=== PATIENT | male | born 1955 ===

== ENCOUNTER 2016-07-03 13:58 | Emergency (ER) | payer SELFPAY ==
[~2016-07-03] VITALS: Ht 167.6 cm; Wt 75.0 kg
[2016-07-03] MEDS ORDERED: SOD CHLORIDE 0.9% 1,000 ML IV STA (14:03)
[2016-07-03] MEDS ORDERED: ONDANSETRON 4 MG INJ IV ONE (14:30)
[2016-07-03] MEDS ORDERED: DIPHTH/TET/ACEL PERTUSS (ADULT) 0.5 ML VIAL IM* ONE (14:30)
[2016-07-03] MEDS ORDERED: LIDOCAINE 1%/EPI (MDV) 20 ML INJ TOP ONE (14:30)
[2016-07-03] MEDS ORDERED: CEFAZOLIN 1 GM/50 ML (PMX) 50 ML IVPB SCH (14:30)
[2016-07-03] MEDS ORDERED: HYDROmorphONE 2 MG/ML SYG IV ONE (14:30)
[2016-07-03 14:46] VITALS: Ht 167.6 cm; Wt 75.0 kg
[2016-07-03] MEDS ORDERED: ASPI81TA3 PO (14:51)
[2016-07-03] MEDS ORDERED: ATOR80TA75 PO (14:52)
[2016-07-03] MEDS ORDERED: CLOP75TA27 PO (14:52)
[2016-07-03] MEDS ORDERED: ONDA4TAB14 PO (15:00)
[2016-07-03] MEDS ORDERED: HYDR-902 PO (15:00)
[2016-07-03] MEDS ORDERED: CEPH-443 PO (15:00)
--- NOTE | 2016-07-03 15:16 | ERD ---
ER Documentation Chief Complaint Date/Time DATE: 07/03/16 TIME: 15:10 Chief Complaint LACERATION TO RT CHEEKBONE HPI 60-year-old male who presents the emergency room with a laceration to the right cheek. The patient states that he was working with a saw and something flew up and hit him in the face. The patient sustained a significant laceration to his face. He describes moderate throbbing pain that is worse to touch and moderate bleeding. He denies head trauma or loss of consciousness, no midface pain, no difficulty breathing. Unknown tetanus status. Prior history of cardiac disease. No chest pain. Retirement Plan Counselor used. ROS All systems reviewed and are negative except as per history of present illness. Medications Home Meds Active Scripts Ondansetron (Ondansetron Odt) 4 Mg Tab.rapdis, 4 MG PO Q6H Y for NAUSEA AND/OR VOMITING, #20 TAB Prov:ROCHELLE LOYA MD 07/03/16 Hydrocodone/Acetaminophen ([place] 10-325 Tablet) 1 Each Tablet, 1 TAB PO Q6H Y for PAIN, #10 TAB Prov:ROCHELLE LOYA MD 07/03/16 Cephalexin* (Keflex*) 500 Mg Capsule, 500 MG PO QID for 7 Days, CAP Prov:ROCHELLE LOYA MD 07/03/16 Reported Medications Atorvastatin* (Atorvastatin*) Unknown Strength Tablet, PO QHS, #30 TAB 07/03/16 Clopidogrel Bisulfate (Clopidogrel) 75 Mg Tablet, 75 MG PO DAILY, #30 TAB 07/03/16 Aspirin* (Aspirin* Chew) 81 Mg Tab.chew, 81 MG PO DAILY, TAB.CHEW 07/03/16 Allergies Allergies: Coded Allergies: No Known Allergy (Unverified , 07/03/16) FmHx Family History: No diabetes Physical Exam Vitals Vital Signs Date Time Temp Pulse Resp B/P Pulse Ox O2 Delivery O2 Flow Rate FiO2 07/03/16 14:46 98.2 68 18 146/80 96 Physical Exam General: Well developed, well nourished, no acute distress Head: Laceration as described below Eyes: Pupils equally reactive, EOM intact, no evidence of entrapment or ocular injury ENT: Moist mucous membranes, laceration as described below, no dental injury, tolerating secretions, no midface tenderness, no tenderness over zygomatic arch or periorbital region on the right Neck: Supple, no lymphadenopathy Respiratory: Lungs clear bilaterally, no distress Cardiovascular: RRR, no murmurs, rubs, or gallops Abdominal: Soft, non-tender, non-distended, no peritoneal signs : Deferred MSK: No edema, no unilateral swelling, 5/5 strength Neurologic: Alert and oriented, moving all extremities, normal speech, no focal weakness, no cerebellar signs Skin: The patient sustained a significant laceration that is deep just underneath and inferior to the zygomatic arch on the right side of the face. The laceration is approximately 8 cm in length and apparent 1 cm through and through laceration to the oral mucosa on the right side is also noted. The patient has sensation intact to V1 V2 and V3 distribution of the face he has intact motor function of the face. Patient has small arterial bleeding that was controlled with direct pressure, no foreign body, base of the wound is visualized. No exposed neurovascular tissue other than single vessel. Psych: Normal mood Results 24 hrs Current Medications Medications (Trade) Dose Ordered Sig/Cee Route PRN Reason Start Time Stop Time Status Last Admin Dose Admin Sodium Chloride (NS) 1,000 ml @ 1,000 mls/hr Q1H STAT IV 07/03/16 14:03 07/03/16 15:02 DC 07/03/16 14:57 Hydromorphone HCl (Dilaudid) 0.5 mg ONCE ONCE IV 07/03/16 14:30 07/03/16 14:31 DC 07/03/16 14:57 Ondansetron HCl (Zofran Inj) 4 mg ONCE ONCE IV 07/03/16 14:30 07/03/16 14:31 DC Diphtheria/ Tetanus/Acell Pertussis (Adacel) 0.5 ml ONCE ONCE IM* 07/03/16 14:30 07/03/16 14:31 DC 07/03/16 14:59 Lidocaine/ Epinephrine 20 ml 20 ml ONCE ONCE TOP 07/03/16 14:30 07/03/16 14:31 DC 07/03/16 14:58 Cefazolin Sodium (Ancef 1 Gm/50 ml (Pmx)) 50 ml @ 100 mls/hr ONCE IVPB 07/03/16 14:30 07/03/16 14:59 DC 07/03/16 14:58 Procedures/MDM PROCEDURES: Laceration Note: The patient was verbally consented prior to procedure and understands the risks , benefits, and alternatives. The patient is agreeable to procedure and has given verbal consent. Length: 8.0 cm Irrigation: Thorough irrigation was performed with pressure is normal saline Inspection: There is no evidence of deep tissue or structural injury, no evidence of foreign bodies Anesthesia: 1% lidocaine with epinephrine approximately 6 cc Repair: Loose repair using 4. 0 Vicryl a total of 4 sutures hemostasis obtained. A clean dressing was applied. The patient tolerated the procedure well with no complications. MEDICAL DECISION MAKING: Patient sustained a significant laceration to his face this is deep. Concern for possible neurovascular injury. The patient has a small arterial hemorrhage that is controlled with direct pressure. The laceration is through and through. Using direct pressure the bleeding is controlled. The patient will be given Ancef and tetanus. The patient has no evidence of airway injury. He is tolerating secretions, bleeding is controlled. No evidence of dental injury or foreign body. He has no tenderness to the midface, low concern for fracture. No evidence of ocular injury. This seems to be a soft tissue injury of the skin and soft tissue of the face. ER COURSE: I was able to reach Dr. Boo who is covering for Dr. Cox. It appears that they may not be available till this evening. I also made phone calls to local trauma centers with no callback at this time. Dr. Cox was able to call back. He states that he can see the patient is office immediately. The patient's wound was thoroughly irrigated and cleansed he was given antibiotics and pain control medication. Loose closure was obtained and hemostasis was obtained. The patient has no evidence of airway involvement. Given that the bleeding is controlled and the patient has appropriate ENT follow-up right now the patient can be safely discharged from the emergency room and will be directed to Dr. Cox's office emergently. Dr. Cox is expecting the patient. The family was informed using an box folding machine operator and the patient will be safely discharged on antibiotics and pain medication. I kept the patient and/or family informed of laboratory and diagnostic imaging results throughout the emergency room course. DISPOSITION PLAN: The patient is discharged to Dr. Cox's office for laceration care CONSULTATION: ENT Dr. Cox has accepted to see the patient is office. Departure Diagnosis: Primary Impression: Facial laceration Encounter type: initial encounter Qualified Code: S01.81XA - Facial laceration, initial encounter Condition: Stable Patient Instructions: Laceration (Sure+Close) Referrals: JACINTA COX MD [facility] YOU HAVE RECEIVED A MEDICAL SCREENING EXAM AND THE RESULTS INDICATE THAT YOU DO NOT HAVE A CONDITION THAT REQUIRES URGENT TREATMENT IN THE EMERGENCY DEPARTMENT. FURTHER EVALUATION AND TREATMENT OF YOUR CONDITION CAN WAIT UNTIL YOU ARE SEEN IN YOUR DOCTORS OFFICE WITHIN THE NEXT 1-2 DAYS. IT IS YOUR RESPONSIBILITY TO MAKE AN APPOINTMENT FOR FOLOW-UP CARE. IF YOU HAVE A PRIMARY DOCTOR --you should call your primary doctor and schedule an appointment IF YOU DO NOT HAVE A PRIMARY DOCTOR YOU CAN CALL OUR PHYSICIAN REFERRAL HOTLINE AT IF YOU CAN NOT AFFORD TO SEE A PHYSICIAN YOU CAN CHOSE FROM THE FOLLOWING [facility] [address] [facility]. [facility] [address] [facility] [facility] [address] [facility]. [facility] [address] [facility] [facility] [address] [facility]. [facility] [address] [facility]. [facility] YOU HAVE RECEIVED A MEDICAL SCREENING EXAM AND THE RESULTS INDICATE THAT YOU DO NOT HAVE A CONDITION THAT REQUIRES URGENT TREATMENT IN THE EMERGENCY DEPARTMENT. FURTHER EVALUATION AND TREATMENT OF YOUR CONDITION CAN WAIT UNTIL YOU ARE SEEN IN YOUR DOCTORS OFFICE WITHIN THE NEXT 1-2 DAYS. IT IS YOUR RESPONSIBILITY TO MAKE AN APPOINTMENT FOR FOLOW-UP CARE. IF YOU HAVE A PRIMARY DOCTOR --you should call your primary doctor and schedule and appointment IF YOU DO NOT HAVE A PRIMARY DOCTOR YOU CAN CALL OUR PHYSICIAN REFERRAL HOTLINE AT . IF YOU CAN NOT AFFORD TO SEE A PHYSICIAN YOU CAN CHOSE FROM THE FOLLOWING [facility], [facility] INSTITUTIONS: [facility] [address] [place] [address] [facility] [address] [place] [address] [facility] [address] [place] [address] Additional Instructions: GO TO DR. COX's OFFICE NOW for REPAIR. BORM, ROCHELLE A., MD Jul 03, 2016 15:16
== END 2016-07-03 15:22 | disposition home or self-care (01) ==
LOC: E/R 13:58
DX: S01.419A Laceration without foreign body of unspecified cheek and temporomandibular area, initial encounter (principal); W22.8XXA Striking against or struck by other objects, initial encounter; Y92.89 Other specified places as the place of occurrence of the external cause; Z79.82 Long term (current) use of aspirin; Z23 Encounter for immunization
CPT/HCPCS: 12015; 90715; J0690; J1170; J2405; J7030; 90471; 96374; 96375